=== PATIENT | female | born 1940 | race Caucasian/White ===

== ENCOUNTER 2022-05-19 07:09 | Day surgery (SDC) | payer MEDICARE ==
[~2022-05-19] VITALS: Ht 167.6 cm; Wt 81.6 kg
[~2022-05-19 07:09] MED LIST: ALBUTEROL1 IN; ALEVE220 M2 PO; ANTIVERT25 MG PO; AUGMENTIN875TAB PO; COQ1030 MG PO; D350 MCG PO; FUROSEMIDE20 MG PO; GABAPENTIN100 MG PO; HYZAAR1 TA2 PO; MEDDOSEPAK PO; MELATONIN10 MG PO; MOTRIN800 MG PO; NO; OMEPRAZOLE20 M2 PO; VITAMIN B-12500 MCG PO; VITAMIN D3400 UNI2 PO; ZOCOR20 M1 PO; ZOFRAN ODT4 MG PO
[2022-05-19] MEDS ORDERED: TYLENOL500 MG PO (07:32)
[2022-05-19 10:12] VITALS: BP 151/95
== END 2022-05-19 10:00 | disposition home or self-care (01) ==
LOC: ENDO 07:09 → ORM 09:00 → ENDO 09:00
PROVIDERS: ATTEND Surgery
PROC: 0DJD8ZZ Inspection of Lower Intestinal Tract, Via Natural or Artificial Opening Endoscopic (ICD-10-PCS; principal; 2022-05-19)
DX: K57.30 Diverticulosis of large intestine without perforation or abscess without bleeding (principal); K64.8 Other hemorrhoids; K64.4 Residual hemorrhoidal skin tags; K43.2 Incisional hernia without obstruction or gangrene; J44.9 Chronic obstructive pulmonary disease, unspecified; Z86.010 Personal history of colon polyps